=== PATIENT | male | born 1960 | race Two or more races ===

== ENCOUNTER 2017-04-10 07:40 | Emergency (ER) | payer OTHER ==
[~2017-04-10] VITALS: Ht 162.6 cm; Wt 72.1 kg
[2017-04-10 07:53] VITALS: BP 128/84
[2017-04-10] MEDS ORDERED: predniSONE 20 MG TABLET ONE (08:08)
[2017-04-10] MEDS ORDERED: predniSONE 20 MG TABLET PO ONE (08:30)
== END 2017-04-10 08:24 | disposition other institution (70) ==
LOC: ER 07:42
DX: K12.2 Cellulitis and abscess of mouth (principal); R09.82 Postnasal drip; I10 Essential (primary) hypertension
CPT/HCPCS: 99283; A4606; J7512; Z7610